=== PATIENT | female | born 1960 | race Caucasian/White ===

== ENCOUNTER → 2017-08-14 13:06 | Outpatient (CLI) | payer BC, SELFPAY ==
--- NOTE | 2017-08-14 13:12 | BI_ITS ---
MAMMOGRAPHY - BILATERAL SCREENING REASON FOR EXAM: Female, 57 years old. Routine annual screening examination. PERTINENT HISTORY: Non-contributory. TECHNIQUE: Digital bilateral breast ashwini (3D mammographic acquisition) in the CC and MLO projections. 2-D mediolateral oblique (MLO) and craniocaudad (CC) views of both breasts were obtained. CAD: Full Field Digital Mammography with Computer Added Detection was performed. COMPARISON: Comparison is made with prior examination dated June 15, 2012. FINDINGS: Breast Composition: There are scattered areas of fibroglandular density. There are no dominant masses or suspicious calcifications. No other significant abnormalities are identified. There has been no significant change since the prior study. BI/SCREENING MAMM (CAD), BILAT IMPRESSION: Stable bilateral screening mammogram. Yearly follow-up mammogram recommended. (A) ASSESSMENT CATEGORY: BIRADS Category 1: Negative. A letter regarding these results will be sent to the patient by the facility within 30 days. Approximately 10% of breast cancers are not detected by mammography. A normal mammogram should not delay biopsy of a clinically suspicious abnormality. [id number] Electronically Signed: Gilbert Colvin MD at 9:14 EDT Tel [phone], Service support ,
== END ==
PROVIDERS: Visit Provider Obstetrics & Gynecology
DX: Z12.31 Encounter for screening mammogram for malignant neoplasm of breast (principal)
CPT/HCPCS: 77063; 77067

== ENCOUNTER → 2017-10-07 08:29 | Outpatient (CLI) | payer BC, SELFPAY | PROVIDERS: Visit Provider Nurse Practitioner | DX: Z78.0 Asymptomatic menopausal state (principal) | CPT/HCPCS: 77080 ==

== ENCOUNTER → 2017-11-13 09:04 | Outpatient (CLI) | payer BC, SELFPAY ==
--- NOTE | 2017-11-13 | COLBX_PTH ---
PATIENT: JUAN DIEGO WRIGHT LOC: [facility] U#:[id number] AGE/SX: 64/F ROOM: RE11/13/[address]: Dr. Rik Cruz MD : 1960 BED: DIS: SPEC #: [id number] RECD: 11/13/17 10:10 STATUS: MARLYS ERICA #: [id number] ARLETH: 11/13/17 00:[address]: Rik Cruz DEPT: SURGICAL PATHOLOGY RECD BY: Vick Francois ENTERED: 11/16/17 10:10 SP TYPE: COLON BX OTHR DR: No Primary Care Phys [facility] Tissues: A - Ileum, NOS B - COLON BIOPSY Procedures: Surgery Specimen Level IV HEADER OPERATION: Colonoscopy with biopsy PRE-OP DIAGNOSIS: Diarrhea TISSUE SUBMITTED: A - Biopsy terminal ileum, rule out Crohn's, B - Biopsy right and left colon, rule out adenoma MICROSCOPIC DIAGNOSIS A. Terminal ileum, biopsy: No pathologic diagnosis. No evidence of Crohn's enteritis. B. Right and left colon, biopsy: Fragments of benign colonic mucosa. See comment. AM:cassie 11/17/17 COMMENT B. Adenomatous change is not identified. MICROSCOPIC DESCRIPTION Slides are reviewed. GROSS DESCRIPTION A - Received in fixative is one container labeled with the patient's name and designated biopsy terminal ileum. The specimen consists of multiple irregular fragments of light jones soft tissue that in aggregate measure 0.8 x 0.3 x 0.1 cm. The specimen is totally submitted in one cassette. B - Received in fixative is one container labeled with the patient's name and designated biopsy right and left colon. The specimen consists of multiple irregular fragments of light jones soft tissue that in aggregate measure 1.5 x 0.5 x 0.1 cm. The specimen is totally submitted in one cassette. / KEENAN:cassie 11/16/17 TC:3 CPT: 63145 x2
== END ==
PROVIDERS: Visit Provider Internal Medicine Gastroenterology
DX: R19.7 Diarrhea, unspecified (principal)
CPT/HCPCS: 88305

== ENCOUNTER 2019-05-07 15:34 | Emergency (ER) | payer BC, SELFPAY ==
[2019-05-07 15:35] VITALS: PULSE 83; RESP 16; TEMP 36.5; O2SAT 100; BMI 33.9
--- NOTE | 2019-05-07 15:48 | EKG12_ITS ---
Test Reason : Blood Pressure : / mmHG Vent. Rate : 078 BPM Atrial Rate : 078 BPM P-R Int : 178 ms QRS Dur : 088 ms QT Int : 400 ms P-R-T Axes : 043 027 031 degrees QTc Int : 456 ms Normal sinus rhythm Normal ECG Confirmed by IRMA BROWN ([id number]), deputy editor in chief BEATRICE OROPEZA ([id number]) on 05/12/2019 9:20:37 AM Referred By: Confirmed By:IRMA BROWN
--- NOTE | 2019-05-07 15:48 | US_ITS ---
STUDY: ABDOMINAL ULTRASOUND - RIGHT UPPER QUADRANT REASON FOR VISIT: Female, 59 years old ABD/EPIGASTRIC PAIN TECHNIQUE: Ultrasound evaluation of the right upper quadrant was performed with real-time and static acosta-scale imaging. TECHNICAL QUALITY: Adequate. COMPARISON: None. FINDINGS: Liver: The liver measures 16.3 cm. There is increased echogenicity consistent with fatty infiltration. The bile ducts are within normal limits. There is hepatic color flow. The direction of portal flow is hepatopetal. There is no demonstrated mass lesion. Gallbladder: Normal distended gallbladder. The gallbladder wall measures 6 mm. There is a negative sonographic Vila''s sign. There is pericholecystic fluid. There are multiple echogenic structures within the gallbladder, consistent with multiple gallstones. Common Bile Duct (C.B.D.): The common bile duct measures 4 mm. Pancreas: Normal size of the head, body and tail of the pancreas. There is normal echogenicity of the pancreas. There is no demonstrated pancreatic mass or cyst. Right Kidney: Normal size of the right kidney. The right kidney measures 10.3 cm. Normal renal cortex. The right cortex measures 1.4 cm. There is no demonstrated renal mass or cyst. There is no right hydronephrosis. US/Gallbladder IMPRESSION: Gallstones, thickened gallbladder wall, pericholecystic edema. Findings suggest cholecystitis. Negative Vila''s sign. Electronically Signed: Luisito Alvarez MD at 17:23 EDT , Service support ,
--- NOTE | 2019-05-07 15:50 | ED.VISSUMM ---
- ER Visit Summary Date of Service: 05/07/19 Chief Complaint: Epigastric pain History of Present Illness: The patient is a 59 F presenting with epigastric pain. She states this started approximately 2 hours ago. Pain is starting to subside. It started after she ate tacos at a restaurant. She denies nausea, vomiting, diarrhea. Denies constipation. Denies chest pain or shortness of breath. Denies fever or cough. She recently returned from a road trip from [place]. She states they did make frequent stops. She denies pleuritic chest pain, dizziness, palpitations. Denies other complaints. Physical Examination: Vitals are stable. Patient is afebrile. Alert no acute distress. HEENT exam is unremarkable. Neck is supple. Lungs are clear and equal bilaterally. Heart is regular rate and rhythm. Abdomen is soft epigastric and right upper quadrant tenderness with no guarding or rebound. Extremities are unremarkable. Skin is warm and dry. No focal neurologic deficit. Remainder of exam is unremarkable. Emergency Department Course and Treatment: Patient was given morphine, Zofran IV. CBC, chemistries unremarkable other than potassium 3.4, glucose 140. Alk phos 163, AST 38, lipase is 112. Troponin is negative. EKG is sinus rhythm rate of 78. D-dimer was elevated at 0.51. Due to elevated d-dimer, CTA chest was obtained and shows normal CTA chest examination, without a demonstrated pulmonary embolism or arterial dissection. Right upper ultrasound shows gallstones, thickened gallbladder wall, pericholecystic edema. Findings suggest cholecystitis. Negative Vila''s sign. On reevaluation, patient is feeling improved. Her pain is resolved. She is requesting discharge home. Discussed with Dr. Jackman. He will see her in the office Thursday. She is advised to return to the ED tomorrow if she has any return of her pain or symptoms and at that time she would be admitted for surgery. Advised liquid diet. Advised to return to ED for worsening complaints. Disposition: Discharge home Impression: Biliary colic This note was generated with VISENZE dictation software. It may contain incorrect words, spelling, and punctuation that were not noted in review of the chart prior to signing ED Disposition - Plan for ED Patient: Instructions: BILIARY COLIC with Gallstone (Confirmed) Referrals: Josh Jackman MD [STAFF PHYSICIAN] - Mauro Sawyer DO [Primary Care Provider] -
--- NOTE | 2019-05-07 15:51 | NURSING ---
NO OLD EKGS
[2019-05-07 15:56] LABS: Absolute Lymphocyte Count 2.02 X10^3/uL (0.83-4.51); Absolute Neutrophil Count 8.2 X10^3/uL (2.0-7.7); Basophil# 0.04 X10^3/uL; Basophil% 0.4 % (0-1); Eosinophil# 0.09 X10^3/uL; Eosinophils% 0.8 % (0-5); Hematocrit 40.9 % (37-47); Hemoglobin 13.4 g/dL (12.0-15.0); Lymphocyte # 2.02 X10^3/ul (4.0); Lymphocyte % 18.4 % (19-41); Mean Corp Hgb Conc 32.8 g/dL (32-36); Mean Corpuscular Hgb 31.3 pg (27.0-32.0); Mean Corpuscular Volume 95.6 fL (81-99); Mean Platelet Vol. 8.9 fl (6.2-12.0); Monocyte# 0.63 X10^3/uL; Monocyte% 5.7 % (0-10); NRBC Flagged by Analyzer 0 % (0-5); Neutrophil # 8.18 X10^3/uL (2.7-7.7); Neutrophil % 74.3 % (47-70); Platelet Count 385 K/mm3 (150-450); RBC Distribution Width CV 12.7 % (11.6-14.6); RBC Distribution Width SD 44.2 fl (35.1-43.9); Red Blood Count 4.28 M/mm3 (4.2-5.4)
[2019-05-07 16:11] LABS: ALB/GLOB Ratio 0.8 RATIO (0.9-2.4); AST(SGOT) 38 U/L (15-37); Alanine Aminotransfer ALT/SGPT 31 U/L (13-56); Albumin, Serum 3.5 g/dL (3.2-5.0); Alkaline Phosphatase 163 U/L (45-117); Anion Gap 6 (5-15); BUN 15 mg/dL (7-18); BUN/Creat Ratio 16.6 RATIO (10-20); Calcium,Total 8.9 mg/dL (8.5-10.1); Chloride 101 mmol/L (98-107); EST Glomerular Filtration Rate 68 mL/min (>60); Est Glom Filt Rate - Afr Amer 82 mL/min (>60); Estimated Creatinine Clearance 55.68 ml/min; Globulin 4.5 g/dL (2.2-4.2); Glucose 140 mg/dL (74-106); Lipase 112 U/L (73-393); Potassium 3.4 mmol/L (3.5-5.1); Sodium Level 138 mmol/L (136-145)
[2019-05-07 16:15] LABS: D-Dimer Quantitative (DVT/PE) 0.51 FEU/ug/m (0.27-0.49)
--- NOTE | 2019-05-07 16:18 | CT_ITS ---
STUDY: CTA CHEST REASON FOR EXAM: Female, 59 years old. Elevated d-dimer. Epigastric pain. RADIATION DOSAGE (If Supplied By Facility): CTDIvol = ( 10.28 ) mGy, DLP = ( 451.46 ) mGycm TECHNIQUE: The examination was performed with the intravenous administration of IV 100mL Isovue-370. Post-processing of the angiographic images was performed, with multiplanar reformation and 3D reconstruction. Individualized dose optimization techniques were used for this CT. COMPARISON: None. FINDINGS: Normal enhancement of the main pulmonary artery and right and left pulmonary arteries. Normal enhancement of the bilateral peripheral pulmonary arteries. There is no demonstrated pulmonary embolism. Normal thoracic aorta and visualized great vessels. There is no demonstrated aortic dissection. Normal heart and pericardium. Normal mediastinum. Normal hilar regions. Normal visualized trachea and bronchi. The lungs are well expanded. Normal pulmonary parenchyma. Normal pleura. Normal chest wall structures. Normal osseous structures. Normal visualized upper abdomen. CT/CTA Chest W/WO Contrast IMPRESSION: Normal CTA chest examination, without a demonstrated pulmonary embolism or arterial dissection. Electronically Signed: Luisito Alvarez MD at 17:14 EDT , Service support ,
[2019-05-07 18:19] VITALS: BP 140/89; PULSE 84; RESP 18; O2SAT 98
--- NOTE | 2019-05-07 19:07 | ED.DEP ---
ED Disposition - Plan for ED Patient: Instructions: BILIARY COLIC with Gallstone (Confirmed) Referrals: Mauro Sawyer DO [Primary Care Provider] - Josh Jackman MD [STAFF PHYSICIAN] -
[2019-05-07 19:19] VITALS: BP 138/95; PULSE 85; RESP 14; O2SAT 98
== END 2019-05-07 19:20 | disposition home or self-care (01) ==
LOC: ED 16:34
PROVIDERS: Emergency Provider Emergency Medicine; PCP Student in an Organized Health Care Education/Training Program
DX: K80.60 Calculus of gallbladder and bile duct with cholecystitis, unspecified, without obstruction (principal); R79.89 Other specified abnormal findings of blood chemistry
CPT/HCPCS: 71275; 76705; 80053; 83690; 84484; 85025; 85379; 93005; 99285; J7030; Q9967; A4216

== ENCOUNTER 2019-05-10 10:07 | Day surgery (SDC) | payer BC, SELFPAY ==
--- NOTE | 2019-05-09 03:09 | HP_ITS ---
Intake Vital Signs 05/09/19 Height 5 ft 3 in 05/09/19 Weight: 188 lb 05/09/19 BMI 33.3 05/09/19 BP 126/85 H 05/09/19 Blood Pressure Location Rt brachial 05/09/19 Position Sitting 05/09/19 Respiration 18 05/09/19 Pulse 81 05/09/19 Pulse Source Monitor 05/09/19 Temp 98.2 F 05/09/19 Temp Source Oral 05/09/19 Pulse Oximetry (%) 94 05/09/19 Oxygen Delivery Method room air Intake Visit Reasons: BILIARY COLIC/ GALLSTONES Chief Complaint: cholelithiasis/cholecystitis Butcher Assistant Required: No Is patient in pain?: No Allergies No Known Allergies Allergy (Verified 05/09/19 14:36) Medications Amitriptyline HCl 10 mg PO QHS 05/07/19 [History Confirmed 05/09/19] Oxybutynin [Ditropan] 5 mg PO DAILY 05/07/19 [History Confirmed 05/09/19] [facility] Medical History Abdominal pain (Acute) Cholecystitis (Acute) Cholelithiasis (Acute) Surgical History history bilateral ACL repair (Acute) Social History (Updated 05/09/19 @ 15:[address] Josh Jackman MD) Smoking Status: Never smoker alcohol intake: current alcohol intake frequency: a few times a month substance use type: does not use HPI HPI HPI: JUAN DIEGO WRIGHT, is a 59 F who presents to the office today for HPI HPI Surgical H&P: Yes HPI: JUAN DIEGO WRIGHT is a 59 F who presents to the office today for Evaluation of acute cholecystitis. Patient was seen [facility]'s emergency department with epigastric abdominal discomfort ultrasound was obtained showing gallbladder wall being at 6 mm pericholecystic fluid was there multiple gallstones within the gallbladder and the common bile duct measuring 4 mm.She was noted to have an elevation in her alkaline phosphatase minimally at 163 total bilirubin was normal CBC and chemistries were essentially otherwise unremarkable. Her pain has subsided although she has certain food aversion at this point. ROS General General: No weight change, appetite, fatigue, colon cancer, breast cancer or weakness HEENT HEENT: No difficulty swallowing, eye injury, eye surgery, swollen glands or hoarseness Endo Endocrine: No thyroid disease, diabetes mellitus, thyroid cancer, Hair loss, heat intolerance or cold intolerance Skin Skin: No rash or changing moles Breast Breast: No left breast lump, right breast lump, nipple discharge, breast pain, abnormal mammogram, abnormal US or breast enlargement Musc Musculoskeletal: No back problems, arthritis, rheumatoid arthritis, gout or joint pain Cardio Cardiovascular: No murmur, pacemaker, heart disease, atrial fibrillation, high blood pressure, heart attack, heart stent, palpitations, shortness of breat with exertion or chest pain Psych Psychiatric: No depression, anxiety or hearing voices Resp Respiratory: No shortness of breath, No sleep apnea, No cough, No COPD, No asthma, No emphysema, No wheezing Gastro Gastrointestinal: Yes abdominal pain, No nausea or vomiting, No diarrhea, No constipation, No blood in stool, No acid reflux, No hemorrhoids, No ulcers, Yes gallbladder problem, No black,tarry stools Mika Hematologic: No blood thinners, No blood disorders, No bleeding, No anemia, No blood clots Neuro Neurologic: No system reviewed and no additional complaints, except as docu, No as per HPI, No abnormal walking, No abnormal hearing, No abnormal movements, No abnormal speech, No behavioral changes, No burning sensations, No confusion, No seizure-like activity, No unsteadiness, No dizziness, No localized weakness, No frequent falls, No headache(s), No lack of coordination, No loss of vision, No memory loss, Yes numbness, No other visual disturbances, No radiating pain, No restless legs, No sensory deficit, No fainting, Yes tingling, No tremor(s), No weakness, No other Exam Const General: no acute distress, well developed, well hydrated Orientation: oriented to person, oriented to place, oriented to time [facility] Head: normocephalic, atraumatic Ears: external ears normal Mouth: moist mucous membranes Eyes Sclera: sclerae normal Pupils: normal by confrontation Neck Neck: no lymphadenopathy noted Neck mass: No Thyroid: thyroid normal, symmetrical Chest Chest palpation & inspection: normal inspection of the chest Breast Palpation: No nipple discharge Resp Effort & Inspection: normal respiratory effort Auscultation: clear to auscultation bilaterally Percussion: percussion normal Cardio Rate: regular rate Rhythm: regular rhythm Heart Sounds: no murmurs GI Palpation: soft, no hepatosplenomegaly, no masses, tender Auscultation: normal bowel sounds Rectal Exam: other Other: Rectal exam deferred. Extrem General: normal to inspection, no clubbing, cyanosis or edema Assessment & Plan Problems 1. Acute calculous cholecystitis K80.00 Plan Reviewed the anatomy with the patient and discussed the procedure: laparoscopic cholecystectomy with possible cholangiograms, possible open. Review risks including but not limited to bleeding, infection, hernia, bile leak, retained gallstones requiring another procedure ERCP- Endoscopic Retrograde Cholangiopancreatography, injury to another organ (bile ducts, common bile duct, small bowel, etc.) and conversion to an open procedure. All questions were answered. Coding Level of Care Code Off vis,new,level 3 Diagnoses Acute calculous cholecystitis K80.00 05/09/19 1509 <Electronically signed by Josh chapman MD> Date _ Josh Jackman MD I have re-examined the patient. There are no clinical changes since date of exam.
[2019-05-09 09:23] VITALS: BMI 33.9
[2019-05-10 10:28] VITALS: BP 143/76; PULSE 78; RESP 15; TEMP 37.3; O2SAT 96; BMI 32.5
[2019-05-10] MEDS: Lactated Ringers 1,000 ML 100 ML IV (10:59)
[2019-05-10] MEDS: Cefazolin 2 GM in 0.9% Normal Saline 100 ML IV (12:06)
[2019-05-10] MEDS: Bupivacaine Mpf 0.5% 30 ML VIAL (12:15)
--- NOTE | 2019-05-10 12:16 | PCM.OPRPT ---
Problem List (1) Acute calculous cholecystitis Status: Acute Report of Operation Date of Procedure: 05/10/19 Pre-Operative Diagnosis: Acute calculus cholecystitis Post-Operative Diagnosis: Same Surgery/Procedure Performed:: Laparoscopic cholecystectomy Type of Anesthesia:: General Anesthesiologist: Jay Downey Specimen's removed: Gallbladder Estimated Blood Loss (mL): < 25 cc Fluids Replaced: 800 cc LR Description of Procedure: Patient was brought into the operating room placed in the supine position. Under excellent general trach intubation the abdomen was sterilely prepped draped in usual fashion. Local was injected infraumbilically. Dissection was carried down to the fascia. The fascia grasped with a Cici. Varies needle was placed inside the abdomen. The abdomen was insufflated 15 torr. A 10/12 trocar was placed without difficulty. The patient was placed in the head up and rotated to the left position. Subxiphoid #5 trocar was placed, inferior to this another #5 trocar was placed, laterally a #5 trocar was placed. All of these under direct visualization without injury to underlying structures. Fundus of the gallbladder was grasped retracted cephalad direction. Moderate amount of adhesions were taken down from the gallbladder itself. I dissected out a short cystic duct. I placed hemoclips proximally and distally and ligated the duct. Dissected the cystic artery free placed Hemovacs proximally distally and ligated the artery. Deliver the gallbladder from the gallbladder bed with use of electrocautery there was no spillage of bile or stones. Placed a specimen a specimen bag delivered through the umbilical port without difficulty. Reinflated and inspected the right upper quadrant pneumostasis was noted. Remove the trochars and direct visualization good mistakes was noted. To close the fascia the umbilical port with 0 Vicryl skin incisions were closed with subcuticular stitches of 4-0 Monocryl Steri-Strips were applied sterile dressings were applied and the patient tolerated the procedure well. - Admit VTE Documentation VTE Present on Admission: No VTE Mechan Device Prophylaxis: SCD's VTE Pharm Prophylaxis ordered?: No Reason prophylaxis not ordered:: Treatment Not Indicated
--- NOTE | 2019-05-10 12:19 | DCINST_ITS ---
Discharge Diet: Light diet - advance as tolerated Discharge Activity: May Not Drive - for 2-3 days or while taking narcotic pain medications., - - Do not drive, work heavy equipment or sign legal documents for 24 hours. May shower in (days): 1 - with the bandage in place. Additional Activity Instructions:: Pain medication may cause nausea. You should typically eat light foods as you take your pain medications. Pain medication may also cause constipation. If this is a problem for you, please discuss with your doctor. Call your doctor if your incision/area has: Continuous Slow Oozing, Sudden Increased Bleeding, Increased Pain/ Swelling, Increased Redness, Foul Smelling Discharge Call your doctor if you observe: Fever of 101 or Higher Suture Line Care: Avoid Pulling/Pushing, Avoid Pinching/Bending Additional Dressing/Incision Instructions:: Leave operative bandaids on for 2 days. When you remove dressing, leave Steri-Strips on until your follow-up appointment, or until the Steri-Strips fall off on their own. Allergies/Adverse Reactions: Allergies No Known Allergies Allergy (Verified 05/10/19 10:27) Medications to take at Discharge Amitriptyline HCl 10 mg PO QHS 05/07/19 Oxybutynin [Ditropan] 5 mg PO DAILY 05/07/19 Oxycodone HCl/Acetaminophen [Percocet 5/325] 1 - 2 tablet PO Q4H PRN PRN 6 Days #30 tablet 05/10/19 The following prescriptions were given: Oxycodone HCl/Acetaminophen [Percocet 5/325] 1 - 2 tablet PO Q4H PRN PRN 6 Days #30 tablet PRN Reason: Pain Transmission Status: Sent to [id number] Primary Care Physician: Mauro Sawyer DO [Primary Care Provider] - Test Results: Test results from this visit will be discussed in further detail at your follow- up appointment, if applicable. Please Follow Up With: Josh Jackman MD - Please call [phone] to schedule an appointment. When: 7 days after your surgery.
--- NOTE | 2019-05-10 12:20 | GALL_PTH ---
PATIENT: JUAN DIEGO WRIGHT [place] [facility] [id number] AGE/SX: 59/F ROOM: RE05/10/[address]: Dr. Josh Jackman MD : 1960 BED: DIS: 05/10/2019 SPEC #: [id number] RECD: 05/10/19 14:10 STATUS: MARLYS REAngelo #: [id number] ARLETH: 05/10/19 12:[address]: Josh Jackman DEPT: SURGICAL PATHOLOGY RECD BY: Christiano Cruz ENTERED: 05/11/19 06:57 SP TYPE: VALERIE LI DR: Dr. Mauro Sawyer DO Tissues: Gallbladder, NOS Procedures: Surgery Specimen Level III HEADER OPERATION: Laparoscopic cholecystectomy PRE-OP DIAGNOSIS: Acute calculus cholecystitis TISSUE SUBMITTED: Gallbladder MICROSCOPIC DIAGNOSIS Gallbladder, cholecystectomy: Chronic cholecystitis and cholelithiasis. AM:cassie 05/12/19 MICROSCOPIC DESCRIPTION Slides are reviewed. GROSS DESCRIPTION Received is one container labeled with the patient's name and designated gallbladder. The specimen consists of a gallbladder measuring 9 cm in length and up to 4 cm in diameter. The external surface is pink-jones, smooth and glistening for the most part. Focally it is granular, hemorrhagic and contains cautery artifact. The gallbladder contains green-yellow mucoid bile and multiple, mulberry, greenish-yellow stones measuring in aggregate 4 x 3 x 0.6 cm and 0.1 to 0.9 cm in greatest dimension. The mucosa is bile-stained and without any mass lesions. The gallbladder wall measures up to 0.1 cm in thickness. Respiratory Therapy Aide sections from the gallbladder and the cystic duct are submitted in one cassette. / SJ:cassie 05/11/19 TC:3 CPT: 79924
[2019-05-10 12:58] VITALS: BP 143/76; BP 143/86; PULSE 77; RESP 18; TEMP 36.2; O2SAT 95
[2019-05-10 13:00] VITALS: BP 142/85; BP 143/76; PULSE 76; RESP 18; O2SAT 94
[2019-05-10 13:15] VITALS: BP 143/76; BP 157/88; PULSE 72; RESP 16; O2SAT 96
[2019-05-10 13:31] VITALS: BP 143/76; BP 157/95; PULSE 76; RESP 16; TEMP 36.6; O2SAT 96
[2019-05-10] MEDS: oxyCODONE 5 MG Tablet PO (13:58)
[2019-05-10] MEDS: Acetaminophen 325 MG Tablet PO (13:58)
[2019-05-10 14:40] VITALS: BP 143/76; BP 155/99; PULSE 80; RESP 18; TEMP 36.6; O2SAT 99
== END 2019-05-10 14:50 | disposition home or self-care (01) ==
LOC: SDC 10:07 → AC 10:09
PROVIDERS: PCP Student in an Organized Health Care Education/Training Program; Referring Provider Surgery; Visit Provider Surgery
PROC: (CPT 47562; principal; 2019-05-10 12:00)
DX: K80.10 Calculus of gallbladder with chronic cholecystitis without obstruction (principal)
CPT/HCPCS: 00790; 47562; 88304; J7120; J2405

== ENCOUNTER → 2022-10-07 | Outpatient (CLI) | payer OTHER, SELFPAY ==
--- NOTE | 2022-10-07 07:18 | EKG12_ITS ---
Test Reason : PRE OP Blood Pressure : / mmHG Vent. Rate : 067 BPM Atrial Rate : 067 BPM P-R Int : 176 ms QRS Dur : 092 ms QT Int : 480 ms P-R-T Axes : 047 -03 -06 degrees QTc Int : 507 ms Normal sinus rhythm Low voltage QRS Nonspecific T wave abnormality Prolonged QT Abnormal ECG Confirmed by CIRILO CRANDALL ([id number]), editor at large ÁNGEL FREEMAN ([id number]) on 10/09/2022 1:48:06 PM Referred By: Javier Peraza Confirmed By:CIRILO CRANDALL
--- NOTE | 2022-10-07 07:20 | RAD_ITS ---
INDICATION: PRE OP EXAMINATION/TECHNIQUE: X-RAY - XR Chest 2 Views COMPARISON: None. FINDINGS: LINES/DEVICES: None. LUNGS: No pulmonary edema or focal airspace consolidation. No sizable pleural effusion. No pneumothorax detected. Slightly elevated right hemidiaphragm. MEDIASTINUM AND CARDIOVASCULAR STRUCTURES: Heart size within normal limits. Mediastinal contours unremarkable. BONES AND SOFT TISSUES: No acute findings. RAD/Chest PA and Lateral IMPRESSION: No radiographic evidence of acute cardiopulmonary disease. Electronically Signed: Ranjit Bailey MD at 6:06 EDT ,
[2022-10-07 07:58] LABS: Absolute Lymphocyte Count 1.79 X10^3/uL (0.83-4.51); Absolute Neutrophil Count 2.9 X10^3/uL (2.0-7.7); Basophil# 0.05 X10^3/uL; Basophil% 0.9 % (0-1); Eosinophil# 0.15 X10^3/uL; Eosinophils% 2.8 % (0-5); Hemoglobin 12.9 g/dL (12.0-15.0); Lymphocyte # 1.79 X10^3/ul (0.83-4.51); Lymphocyte % 33.8 % (19-41); Mean Corp Hgb Conc 32.3 g/dL (32-36); Mean Corpuscular Hgb 32.5 pg (27.0-32.0); Mean Corpuscular Volume 100.8 fL (81-99); Monocyte% 7.5 % (0-10); NRBC Flagged by Analyzer 0 % (0-5); Neutrophil % 54.8 % (47-70); Platelet Count 305 K/mm3 (150-450); RBC Distribution Width CV 12.4 % (11.6-14.6); RBC Distribution Width SD 46.6 fl (35.1-43.9); Red Blood Count 3.97 M/mm3 (4.2-5.4); White Blood Count 5.3 K/mm3 (4.4-11.0)
[2022-10-07 08:25] LABS: Anion Gap 6 (5-15); BUN 18 mg/dL (7-18); Calcium,Total 8.6 mg/dL (8.5-10.1); Chloride 105 mmol/L (98-107); Creatinine, Serum 0.82 mg/dL (0.55-1.02); EST Glomerular Filtration Rate 75 mL/min (>60); Est Glom Filt Rate - Afr Amer 91 mL/min (>60); Glucose 129 mg/dL (74-106); Potassium 3.7 mmol/L (3.5-5.1); Sodium Level 140 mmol/L (136-145)
== END | disposition home or self-care (01) ==
LOC: PSN 07:18
PROVIDERS: PCP Student in an Organized Health Care Education/Training Program; Referring Provider Student in an Organized Health Care Education/Training Program; Visit Provider Student in an Organized Health Care Education/Training Program
DX: Z01.810 Encounter for preprocedural cardiovascular examination (principal); Z01.818 Encounter for other preprocedural examination
CPT/HCPCS: 36415; 71046; 80048; 85025; 93005

== ENCOUNTER 2024-09-07 21:55 | Emergency (ER) | payer OTHER, SELFPAY ==
[2024-09-07 21:56] VITALS: BP 191/103; PULSE 86; RESP 18; TEMP 36.8; O2SAT 100
[2024-09-07] MEDS: 0.9% Normal Saline (1000mL) 1,000 ML 999 ML IV (22:05)
[2024-09-07] MEDS: Epi Pen (EQUIV) 0.3 MG Syringe IM (22:05)
[2024-09-07] MEDS: DiphenhydrAMINE 50 MG/ML Syringe IV (22:05)
[2024-09-07] MEDS: Famotidine 200 MG/20 ML MDV 20 MG in 0.9% Normal Saline (Pres. free 8 ML 300 MG IV ×2 (22:08→22:11)
[2024-09-07 22:15] VITALS: BP 163/82; PULSE 88; RESP 18; O2SAT 100
[2024-09-07 22:30] VITALS: BP 160/94; PULSE 93; RESP 18; O2SAT 94
[2024-09-07 23:00] VITALS: BP 154/78; PULSE 85; RESP 16; O2SAT 95
[2024-09-07 23:30] VITALS: BP 129/80; PULSE 84; RESP 16; O2SAT 96
--- NOTE | 2024-09-08 | EDS_ITS ---
HPI History of Present Illness Chief Complaint: Allergic Reaction Informant: patient and spouse/S.O. Narrative Narrative: Patient is a 64-year-old female who reports no significant past medical history. She states around 8 PM she was stung in the face by a bee. She states that she immediately put ice on the area and made sure the stinger was not in the tissue. However despite doing ice and allowing time for the inflammatory process to reduce she has had increasing facial and lip swelling. She denies any difficulty breathing or swallowing but with the worsening symptoms presents for evaluation [facility] Medical History (Updated 09/08/24 @ 00:[address] Eliot Harkins, DO) Abdominal pain Cholelithiasis Cholecystitis Home Medications ?Medication ?Instructions ?Recorded ?Last Taken ?Type prednisone 20 mg tablet 40 mg (2 x 20 mg) PO DAILY 5 days 09/08/24 Unknown Rx #10 tabs Allergy/AdvReac Type Severity Reaction Status Date / Time bee venom protein (honey Allergy Severe Angioedema Verified 09/07/24 22:00 bee) (bee sting) Surgical History history bilateral ACL repair Social History (Updated 05/30/19 @ 11:08 by Cintia GILL, PA-C) Smoking Status: Never smoker alcohol intake: current alcohol intake frequency: a few times a month substance use type: does not use ROS ROS ED Constitutional Constitutional ED: Denies chills or fever(s) Eyes Eyes: Denies blurry vision or change in vision ENT ENT ED: Reports other Details: Positive facial/lip swelling ; Denies sore throat Cardiovascular Cardiovascular: Denies chest pain Respiratory/Chest Respiratory/Chest: Denies cough or dyspnea Gastrointestinal Gastrointestinal: Denies abdominal pain, diarrhea, nausea or vomiting Neurologic Neurologic: Denies headache(s) Hematologic/Lymphatic Hematologic/Lymphatic: Denies easy bleeding or easy bruising Allergic/Immunologic Allergic/Immunologic ED: Reports mouth swelling; Denies tongue swelling or urticaria EXAM Physical Exam Const Vital Signs: 09/07/24 21:56 09/07/24 22:15 09/07/24 22:30 Temperature 98.2 F Temperature Source Oral Pulse Rate 86 88 93 Respiratory Rate 18 18 18 Blood Pressure 191/103 H 163/82 H 160/94 H Blood Pressure Mean 132 109 116 Pulse Ox 100 100 94 Oxygen Delivery Method Room Air Room Air Room Air 09/07/24 23:00 09/07/24 23:30 09/08/24 00:14 Temperature 98.7 F Temperature Source Pulse Rate 85 84 78 Respiratory Rate 16 16 16 Blood Pressure 154/78 H 129/80 H 146/85 H Blood Pressure Mean 103 96 105 Pulse Ox 95 96 99 Oxygen Delivery Method Room Air Room Air Positive well nourished and well developed General Appearance ED: well developed HEENT Reports moist mucous membranes HEENT Narrative: The patient has swelling to the bilateral cheek and chin region with extension into the upper and slightly into the lower lip However there is no tongue swelling no oral lesions no airway edema or compromise Eyes PERRL and EOMs intact bilaterally Neck supple Resp normal respiratory effort and clear to auscultation bilaterally Resp Narrative: No nasal flaring retractions tachypnea or accessory muscle use Cardio regular rate and regular rhythm Extremity normal to inspection Neuro oriented x3, CN's II-XII intact bilaterally and no sensory deficits noted Sensorium / Orientation: alert Motor Exam: strength 5/5 throughout Psych mental status grossly normal Skin Skin Narrative: There is soft tissue swelling to the face and lip as documented above without urticaria findings throughout the remainder of the skin exam MDM MDM MDM Narrative Medical decision making narrative: Patient arrived to the ER hypertensive but otherwise stable vitals. She reports being stung by an insect/bee roughly 2 hours ago. Despite symptomatic care she has had increasing facial and lip swelling. There is concern for anaphylaxis but is been 2 hours since the insect sting and she is breathing without difficulty and talking in full sentences and there is no internal swelling to the tongue or posterior pharynx. Therefore I feel this is simply a localized allergic reaction and is occurring along the face because that is where the patient was stung. However because of the significant facial edema she was given epinephrine as well as Solu-Medrol Benadryl and Pepcid. She was watched in the ER for 2 hours and she had significant improvement of her swelling and she remained in no acute respiratory distress. Therefore at this time as there is no signs of anaphylaxis and no need for airway stabilization there is no further need for evaluation in the ER and she is otherwise safe for discharge History & Record Review Discussion w/independent historian: Patient and Significant other Discharge Plan Triage Chief Complaint: Allergic Reaction ED Provider: Eliot Harkins Dx/Rx/DC Orders Clinical Impression: Allergic reaction to insect sting Instructions: ED BEE STING General Allergic Rxn Prescriptions: New prednisone 20 mg tablet 40 mg PO DAILY 5 Days Qty: 10 0RF Primary Care Provider: Mauro Sawyer Referrals: Mauro Sawyer DO [Primary Care Provider] - Activity Restrictions/Additional Instructions: Please continue the steroid once daily as directed to reduce any further inflammatory process/allergic reaction. You can continue with [id number] Benadryl as needed as well. If you have any further concerns or worsening of symptoms please return to the ER for repeat evaluation Print Language: Frisian Disposition Disposition: Home, Self Care Discharge Date/Time: 09/08/24 00:15
[2024-09-08 00:14] VITALS: BP 146/85; PULSE 78; RESP 16; TEMP 37.1; O2SAT 99
== END 2024-09-08 00:15 | disposition home or self-care (01) ==
PROVIDERS: Emergency Provider Emergency Medicine; PCP Student in an Organized Health Care Education/Training Program; Visit Provider Emergency Medicine
DX: T63.441A Toxic effect of venom of bees, accidental (unintentional), initial encounter (principal); R60.0 Localized edema
CPT/HCPCS: 96361; 96372; 96374; 96375; 99283; A4216